=== PATIENT | male | born 2005 | race African-American/Black ===

== ENCOUNTER 2024-10-24 23:03 | Inpatient (IN) | payer OTHER ==
[~2024-10-24] VITALS: Ht 195.6 cm; Wt 142.0 kg
--- NOTE | 2024-10-24 23:43 | ED.PDOC ---
Eye-HPI HPI Comments HPI: Poor Historian. 18-year-old male presents to emergency department for two day history of sore throat and swollen tonsils and pain with swallowing. Denies any other acute symptoms. Patient was found with a fever here in the ED. Past Medical History: Denies any Past Surgical History: Denies any REVIEW OF SYSTEMS: CONSTITUTIONAL: Denies acute: fever, diaphoresis, chills, HEAD: Denies acute: headache, photophobia Eyes: Denies acute: Double vision, vision loss, eye pain, eye discharge. EARS: Denies acute: tinnitus, hearing loss, ear discharge, ear pain, THROAT: Denies acute: swelling, difficulty swallowing , change in voice. NECK: Denies acute: neck pain, neck swelling, stiff neck. HEART: Denies acute : chest pain, palpitations, LUNGS: Denies acute: SOB, wheezing, cough, hemoptysis ABDOMEN: Denies acute: abdominal pain, Nausea, Vomiting, diarrhea, melena , hematemesis, hematochezia SKIN: Denies acute: rash, redness, lesions, itchiness. EXTREMITIES: Denies acute: calf pain, numbness, tingling, weakness, denies pain in extremity. Denies acute: Low back pain. Neuro: Denies acute: focal neurological deficit, motor or sensory focal neurological deficit, tremors, seizure like activity, confusion, dizziness, change in mental status, loss of bowel or bladder function, cauda equina like symptoms. : Denies acute: dysuria, hematuria, flank pain, increase in urinary frequency. PSYCH: Denies acute: hallucination, suicidal ideation, homicidal ideation. PHYSICAL EXAM: General: Mild acute distress, awake and alert. Head: normocephalic, atraumatic. Neck: supple, trachea is midline, no swelling. Throat: Normal phonation. Bilateral tonsillar exudates and erythema. No obst ruction, bilateral tonsils swelling, no deviation, no drooling, Eyes:, no erythema, no purulent discharge, no proptosis, no icterus. Heart: regular tachycardia, no significant murmur appreciated. Lungs: no apparent respiratory distress, Able to speak in full sentences. No wheezing, no rhonchi, no crackles. No stridors Clear to auscultation bilaterally. Abdomen: non tender to palpation, non distended, soft, no guarding, no rebound, + bowel sounds. Neuro: Awake, Alert, oriented to name, self, situation, follows commands GCS=15. Speech is normal. Skin: no petechia, no purpura, no cyanosis, non-pale, not jaundice. Lower extremities: --no - Pitting edema no deformity, no focal swelling, no calf TTP. Makes eye contact. moves all four extremities. Face: no apparent facial droop. Ambulating in the ED independently. ED COURSE: Chief Complaint: Sore Throat Time Seen by MD: 23:14 Allergies: Coded Allergies: NO KNOWN ALLERGIES (Unverified , 10/24/24) Information Source: Patient Mode of Arrival: Ambulatory Was a procedure done? Was a procedure done?: No EENT DIFF Eye: N/A Sore Throat: Epiglottitis, Hand Foot Mouth Disease, Herpangina, Herpetic Stomatitis, Mononeucleosis, [place]'s Angina, Peritonsillar Abscess, Peritonsillar Cellulitis, Pharyngitis, Diptheria, Streptococcal, Viral Pharyngitis, URI X-Ray, Labs, Meds, VS Vital Signs Date Time Temp Pulse Resp B/P (MAP) Pulse Ox O2 Delivery O2 Flow Rate FiO2 10/25/24 01:47 98.6 111 18 132/75 (94) 95 98.6 10/25/24 01:47 Room Air* 0 21 10/25/24 01:12 98.7 10/25/24 00:07 100.5 10/24/24 23:20 100.5 111 18 132/75 (94) 95 Lab Test 10/24/24 23:29 10/24/24 23:00 Range/Units White Blood Count 19.9 H 4.4-10.8 10^3/uL Red Blood Count 5.31 4.5-5.90 10^6/uL Hemoglobin 13.7 13.5-17.5 g/dL Hematocrit 42.0 41.0-53.0 % Mean Corpuscular Volume 79.2 L 80.0-100.0 fL Mean Corpuscular Hemoglobin 25.9 L 28.0-32.0 pg Mean Corpuscular Hemoglobin Concent 32.7 32.0-36.0 g/dL Red Cell Distribution Width 14.0 11.8-14.3 % Platelet Count 346 140-450 10^3/uL Mean Platelet Volume 7.7 6.9-10.8 fL Neutrophils (%) (Auto) 82.3 H 37.0-80.0 % Lymphocytes (%) (Auto) 10.8 10.0-50.0 % Monocytes (%) (Auto) 5.6 0.0-12.0 % Eosinophils (%) (Auto) 0.9 0.0-7.0 % Basophils (%) (Auto) 0.4 0.0-2.0 % Neutrophils # (Auto) 16.3 H 1.6-8.6 10 ^3/uL Lymphocytes # (Auto) 2.1 0.4-5.4 10 ^3/uL Monocytes # (Auto) 1.1 0-1.3 10 ^3/uL Eosinophils # (Auto) 0.2 0-0.8 10 ^3/uL Basophils # (Auto) 0.1 0-0.2 10 ^3/uL Nucleated Red Blood Cells 0.0 % Sodium Level 139 136-145 mmol/L Potassium Level 4.0 3.5-5.1 mmol/L Chloride Level 105 98-107 mmol/L Carbon Dioxide Level 24 20-31 mmol/L Anion Gap 10 5-15 Blood Urea Nitrogen 16 9-23 mg/dL Creatinine 1.09 0.700-1.30 mg/dL Glomerular Filtration Rate Calc 100 >90 mL/min BUN/Creatinine Ratio 14.7 10.0-20.0 Serum Glucose 111 H 74-106 mg/dL Lactic Acid Level 1.2 0.4-2.0 mmol/L Calcium Level 10.2 8.7-10.4 mg/dL Total Bilirubin 0.6 0.2-1.0 mg/dL Aspartate Amino Transferase (AST) 16 13-40 U/L Alanine Aminotransferase (ALT) 19 7-40 U/L Alkaline Phosphatase 113 46-116 U/L Total Protein 7.3 5.7-8.2 g/dL Albumin 4.9 H 3.2-4.8 g/dL Monoscreen Negative Group A Streptococcus Rapid Positive Current Medications Medications (Trade) Dose Ordered Sig/Nell Route Start Time Stop Time Status Last Admin Sodium Chloride 1,000 ml @ 1,000 mls/hr Q1H ONCE IV 10/24/24 23:30 10/25/24 00:29 DC 10/25/24 00:00 Acetaminophen (Tylenol Solution Oral) 1,000 mg ONCE ONCE PO 10/24/24 23:45 10/24/24 23:46 DC 10/25/24 00:07 Ceftriaxone Sodium 50 ml @ 100 mls/hr ONCE ONCE IV 10/25/24 00:45 10/25/24 01:14 DC 10/25/24 01:37 Dexamethasone Sodium Phosphate (Decadron Injection) 20 mg ONCE ONCE IV 10/25/24 00:45 10/25/24 00:48 DC 10/25/24 01:37 Sodium Chloride 1,000 ml @ 1,000 mls/hr Q1H ONCE IV 10/25/24 02:00 10/25/24 02:59 DC 10/25/24 02:04 [place] [id number] Ph: [phone] DIAGNOSTIC IMAGING Diagnostic Imaging Report : [id number] Signed PATIENT: CLAUS MAYENNACCT: [id number] UNIT: [id number] : 2005 LOC: ER ROOM / BED: / AGE / SEX: 18 / M ADM STATUS: REG ER SERVICE 23 ORDERING PHYSICIAN: HERMANN RÍOS DO PROCEDURE(s): NK2CT - NECK WITH CONTRAST SOFT REASON: sore throat, swollen tonsils ORDER NUMBER(s): [id number], ACCESSION NUMBER(s): [id number] EXAM: CT NECK WITH CONTRAST SOFT INDICATION: sore throat, swollen tonsils Exam Date: 10/25/2024 12:16 AM COMPARISON: None TECHNIQUE: CT of the neck with intravenous contrast. RADIATION DOSE: CTDIvol: mGy, DLP: mGy*cm CONTRAST: Type of contrast: Contrast injected: ml Contrast ingested: ml FINDINGS: The palatine tonsils are enlarged with striated enhancement consistent with acute tonsillitis. There is considerable narrowing of the oropharyngeal airway. No evidence of abscess. There are mildly enlarged lymph nodes in bilateral level 2, presumably reactive. No evidence of cervical mass lesion or fluid collection. Fat planes of the neck appear intact. Parotid, submandibular and thyroid glands are unremarkable. Vascular structures of the neck appear patent. Visualized lung apices are clear. Limited visualized portions of the brain are unremarkable. Osseous structures are unremarkable. IMPRESSION: Enlarged palatine tonsils consistent with acute tonsillitis with considerable narrowing of the oropharyngeal airway. No evidence of abscess. Mild lymphadenopathy, presumably reactive ATED BY: ARMAND JOYNER MD DICTATED DATE/TIME: 10/25/2447 SIGNED BY: ARMAND JOYNER MD SIGNED DATE/TIME: 10/25/2447 CC: Time of 1ST Reevaluation: 02:31 Reevaluation 1ST: Improved Patient Education/Counseling: Diagnosis, Treatment Family Education/Counseling: No Family Present Comments Patient presented with the above HPI.---sore throat---workup was initiated. patient was found with the above mentioned diagnosis. the following medications were ordered: please refer to order lists of meds and tests obtained by myself Dr. Ríos. Patient ED course and VS have been stabilized. Patient has been reassessed in the ED and remained in a stable condition. Pertinent incidental findings were discussed with the patient and/or family. Patient/family voices understanding and is agreeable with plan. Patient has been observed in the ED adequate length of time to insure improvement/stability. Escalation of care considered: Consideration of escalation to observation or admission Patient was ADMITTED to the medicine team for further evaluation and treatment of their presentation. Sepsis protocol was initiated. All the reports of any imaging studies that were ordered by myself were reviewed by myself. Departure 1 Departure Time of Disposition: 00:52 Impression: Primary Impression: Acute tonsillitis Additional Impressions: Pharyngitis Strep throat Leukocytosis Fever Disposition: ADMITTED INPATIENT Admit to: Tele Condition: Guarded Discharged With: Self Critical Care Note Critical Care Time?: Yes (35 min-critical care time only) I personally scribed for HERMANN RÍOS DO ([email or web address]) on 10/25/24 at 02:04. Electronically submitted by Ulises Gonzales ([email or web address]). I personally scribed for HERMANN RÍOS DO ([email or web address]) on 10/25/24 at 02:48. Electronically submitted by Ulises Gonzales ([email or web address]). HERMANN RÍOS DO Oct 24, 2024 23:43
[2024-10-24 23:56] LABS: Eosinophils # (auto) 0.2 10 ^3/uL (0-0.8); Mean Corpuscular Volume 79.2 fL (80.0-100.0)
[2024-10-24 23:58] LABS: Basophils # (auto) 0.1 10 ^3/uL (0-0.2); Basophils % (auto) 0.4 % (0.0-2.0); Eosinophils % (auto) 0.9 % (0.0-7.0); Hemoglobin 13.7 g/dL (13.5-17.5); Lymphocytes # (auto) 2.1 10 ^3/uL (0.4-5.4); Lymphocytes % (auto) 10.8 % (10.0-50.0); Mean Corpuscular Hemoglobin 25.9 pg (28.0-32.0); Mean Corpuscular Hgb Conc. 32.7 g/dL (32.0-36.0); Monocytes # (auto) 1.1 10 ^3/uL (0-1.3); Monocytes % (auto) 5.6 % (0.0-12.0); Neutrophils # (auto) 16.3 10 ^3/uL (1.6-8.6); Neutrophils % (auto) 82.3 % (37.0-80.0); Platelet Count (auto) 346 10^3/uL (140-450); Red Blood Cells 5.31 10^6/uL (4.5-5.90); White Blood Cell 19.9 10^3/uL (4.4-10.8)
[2024-10-25] VITALS (8 sets, daily range): BP systolic 122–133; BP diastolic 64–78; PULSE 72–94; RESP 16–20; TEMP 97.2–98.1; O2SAT 96–99
[2024-10-25] MEDS: ACETAMINOPHEN 650 mg PER 20.3 mL UD PO ONE (00:07)
[2024-10-25 00:08] LABS: Rapid Strep A Screen-Throat Positive
[2024-10-25] MEDS: IOHEXOL 300 MG/ML 100ML BOTTLE IJ ONE (00:17)
[2024-10-25 00:32] LABS: Alanine Aminotransferase 19 U/L (7-40); Alkaline Phosphatase 113 U/L (46-116); Anion Gap 10 (5-15); Aspartate Aminotransferase 16 U/L (13-40); BUN/Creatinine Ratio 14.7 (10.0-20.0); Bilirubin, Total 0.6 mg/dL (0.2-1.0); Blood Urea Nitrogen 16 mg/dL (9-23); Calcium 10.2 mg/dL (8.7-10.4); Carbon Dioxide 24 mmol/L (20-31); Chloride 105 mmol/L (98-107); Sodium 139 mmol/L (136-145); Total Protein 7.3 g/dL (5.7-8.2)
[2024-10-25 00:36] LABS: Albumin 4.9 g/dL (3.2-4.8); Glucose 111 mg/dL (74-106)
--- NOTE | 2024-10-25 00:50 | DVH ---
EXAM: CT NECK WITH CONTRAST SOFT INDICATION: sore throat, swollen tonsils Exam Date: 10/25/2024 12:16 AM COMPARISON: None TECHNIQUE: CT of the neck with intravenous contrast. RADIATION DOSE: CTDIvol: mGy, DLP: mGy*cm CONTRAST: Type of contrast: Contrast injected: ml Contrast ingested: ml FINDINGS: The palatine tonsils are enlarged with striated enhancement consistent with acute tonsillitis. There is considerable narrowing of the oropharyngeal airway. No evidence of abscess. There are mildly enlarged lymph nodes in bilateral level 2, presumably reactive. No evidence of cervi ligia mass lesion or fluid collection. Fat planes of the neck appear intact. Parotid, submandibular and thyroid glands are unremarkable. Vascular structures of the neck appear patent. Visualized lung apices are clear. Limited visualized portions of the brain are unremarkable. Osseous structures are unremarkable. IMPRESSION: Enlarged palatine tonsils consistent with acute tonsillitis with considerable narrowing of the oropha ryngeal airway. No evidence of abscess. Mild lymphadenopathy, presumably reactive
[2024-10-25] MEDS: cefTRIAXone 1GM/50ML D5W 50 ML IV ONE (01:37)
[2024-10-25] MEDS: DexAMETHasone SOD PHOS 10MG/1ML VIAL INJ IV ONE (01:37)
[2024-10-25] MEDS: SODIUM CHLORIDE 0.9% 1,000 ML IV ONE ×2 (02:04)
[2024-10-25] MEDS ORDERED: MORPHINE SULFATE INJ 2 MG/ml SYRG IV PRN (04:30)
[2024-10-25] MEDS ORDERED: ACETAMINOPHEN 325 MG TAB PO PRN (04:30)
[2024-10-25] MEDS: SODIUM CHLORIDE 0.9% 1,000 ML IV SCH (04:30)
[2024-10-25] MEDS: THROAT LOZENGES(CEPASTAT) MT ONE (04:45)
[2024-10-25] MEDS ORDERED: IBUPROFEN 400 MG TAB PO PRN (04:45)
--- NOTE | 2024-10-25 04:51 | DVHHPRES ---
History of Present Illness Resident Creating Document: JUAN GARCIA RESIDENT History of Present Illness José Babcock is a 18 years old male with no significant past medical history presented to the ED with the chief complaints of throat pain since Monday. Patient reported since Monday patient has been having throat pain which is progressing and limiting ability to swallow and talk and enlarged tonsils which brought him to visit ED. On my assessment patient denies nausea, vomiting, diarrhea, sick contacts, recent travel, and other acute associated symptoms. PMH: Denies PSH: Denies Family history: Reviewed, noncontributory Social history: Lives with family. Denies smoking, alcohol and other drug abuse Allergies: No known allergies Review of Systems Constitutional: Yes: Fever Eyes: No: Pain, Vision change, Conjunctivae inflammation, Eyelid inflammation, Other, Redness ENT: Mouth pain, Throat pain, Throat swelling, Other (Odynophagia and dysphagia) Respiratory: No: Cough, Dry, Shortness of breath, SOB with excertion, Wheezing, Hemoptysis, Pleuritic Pain, Sputum, Wheezing, Other Cardiovascular: No: Chest Pain, Palpitations, Orthopnea, Paroxysmal Noc. Dyspnea, Edema, Lt Headedness, Other Gastrointestinal: No: Nausea, Vomiting, Abdominal Pain, Diarrhea, Constipation, Melena, Hematochezia, Other Genitourinary: No Dysuria, No Frequency, No Incontinence, No Hematuria, No Retention, No Other Musculoskeletal: No: other, neck pain, shoulder pain, arm pain, back pain, hand pain, leg pain, foot pain Skin: No: Rash, Lesions, Jaundice, Bruising, Other Neurological: No: Weakness, Numbness, Incoordination, Change in speech, Confusion, Seizures, Other Allergies: Coded Allergies: NO KNOWN ALLERGIES (Unverified , 10/24/24) Medications Current Medications Medications Dose Ordered Sig/Nell Route Start Time Stop Time Status Last Admin Dose Admin Sodium Chloride 10 ml Q8HR IV 10/25/24 06:00 Sodium Chloride 1,000 ml @ 120 mls/hr Q8H20M IV 10/25/24 04:30 Acetaminophen 650 mg Q6HP PRN PO 10/25/24 04:30 Morphine Sulfate 2 mg Q4HPRN PRN IV 10/25/24 04:30 Exam Vital Signs Vital Signs Date Time Temp Pulse Resp B/P (MAP) Pulse Ox O2 Delivery O2 Flow Rate FiO2 10/25/24 01:47 98.6 111 18 132/75 (94) 95 98.6 10/25/24 01:47 Room Air* 0 21 Exam General Appearance: Alert, Oriented X3, Cooperative, Not in acute distress HEENT: Pharynx and Tonsils are red, swollen, tender Respiratory: Clear to auscultation, Normal air movement, No added sounds Cardiovascular: Regular rate, Normal S1, Normal S2, No murmurs Abdominal: Active bowel sounds, Soft, no distention, no tenderness Extremities: No edema, Normal pulses, No tenderness/swelling Skin: No Significant rash Neuro: Normal speech, sensorimotor deficits none Psych/Mental Status: Mental status NL, Mood NL Nurse was there as sharperone during examination Labs/Xrays Labs Test 10/24/24 23:29 10/24/24 23:00 Range/Units White Blood Count 19.9 H 4.4-10.8 10^3/uL Red Blood Count 5.31 4.5-5.90 10^6/uL Hemoglobin 13.7 13.5-17.5 g/dL Hematocrit 42.0 41.0-53.0 % Mean Corpuscular Volume 79.2 L 80.0-100.0 fL Mean Corpuscular Hemoglobin 25.9 L 28.0-32.0 pg Mean Corpuscular Hemoglobin Concent 32.7 32.0-36.0 g/dL Red Cell Distribution Width 14.0 11.8-14.3 % Platelet Count 346 140-450 10^3/uL Mean Platelet Volume 7.7 6.9-10.8 fL Neutrophils (%) (Auto) 82.3 H 37.0-80.0 % Lymphocytes (%) (Auto) 10.8 10.0-50.0 % Monocytes (%) (Auto) 5.6 0.0-12.0 % Eosinophils (%) (Auto) 0.9 0.0-7.0 % Basophils (%) (Auto) 0.4 0.0-2.0 % Neutrophils # (Auto) 16.3 H 1.6-8.6 10 ^3/uL Lymphocytes # (Auto) 2.1 0.4-5.4 10 ^3/uL Monocytes # (Auto) 1.1 0-1.3 10 ^3/uL Eosinophils # (Auto) 0.2 0-0.8 10 ^3/uL Basophils # (Auto) 0.1 0-0.2 10 ^3/uL Nucleated Red Blood Cells 0.0 % Sodium Level 139 136-145 mmol/L Potassium Level 4.0 3.5-5.1 mmol/L Chloride Level 105 98-107 mmol/L Carbon Dioxide Level 24 20-31 mmol/L Anion Gap 10 5-15 Blood Urea Nitrogen 16 9-23 mg/dL Creatinine 1.09 0.700-1.30 mg/dL Glomerular Filtration Rate Calc 100 >90 mL/min BUN/Creatinine Ratio 14.7 10.0-20.0 Serum Glucose 111 H 74-106 mg/dL Lactic Acid Level 1.2 0.4-2.0 mmol/L Calcium Level 10.2 8.7-10.4 mg/dL Total Bilirubin 0.6 0.2-1.0 mg/dL Aspartate Amino Transferase (AST) 16 13-40 U/L Alanine Aminotransferase (ALT) 19 7-40 U/L Alkaline Phosphatase 113 46-116 U/L Total Protein 7.3 5.7-8.2 g/dL Albumin 4.9 H 3.2-4.8 g/dL Monoscreen Negative Group A Streptococcus Rapid Positive Assessment/Plan Assessment/Plan # Acute streptococcal pharyngitis # acute tonsillitis # sepsis due to above -rapid group a Streptococcus positive -CT neck findings of consistent with acute tonsillitis -ordered throat cultures along with panculture -monitor lab -currently giving Ampicillin-sulbactum -given 1 dose of dexamethasone 20 mg -ibuprofen and lozenges for inflammation and pain # grade 2 obesity with a BMI 36.7 -nutritional counseling -counseling regarding lifestyle modifications including diet and exercise GI PPX not indicated DVT PPX not indicated, Patient is ambulatory Advance diet as patient tolerated Goals of care discussed with the patient for more than 29 minutes: Full code status Case discussed with Dr. Wells, patient and nurse Plan discussed with: Patient My Orders Orders - JUAN GARCIA RESIDENT Procedure Category Date Status Time Admit ADMIT 10/25/24 Transmitted 04:16 Allergies DIGNA 10/25/24 In Process 04:16 Code Status CODE 10/25/24 Transmitted 04:16 Sodium Chloride Lock PHA 10/25/24 In Process (Saline Lock Ns) 06:00 Sodium Chloride 0.9% PHA 10/25/24 In Process 04:30 Condition: Stable DIGNA 10/25/24 In Process 04:16 Acetaminophen Tablet PHA 10/25/24 In Process (Tylenol Tablet) 04:30 Clear Liq Diet DIET 10/25/24 Transmitted Breakfast Morphine Sulfate PHA 10/25/24 In Process Injection 04:30 Nose Throat Culture LACY 10/25/24 Uncollected 04:33 Urine Bacterial LACY 10/25/24 Uncollected Culture 04:33 Respiratory Culture LACY 10/25/24 Uncollected W/ Gs 04:33 Complete Blood Count LAB 10/25/24 Logged 04:33 Blood Alcohol LAB 10/25/24 Logged 04:33 Drug Screen LAB 10/25/24 Logged 04:33 Lactic Acid W/ Reflex LAB 10/25/24 Logged Order 04:33 Magnesium LAB 10/25/24 Logged 04:33 PTPTT LAB 10/25/24 Logged 04:33 Rapid Influenza A&B LAB 10/25/24 Logged 04:33 Covid19 Antigen Inna LAB 10/25/24 Logged Thyroid Stimulating LAB 10/25/24 Logged Hormone 04:33 Urinalysis LAB 10/25/24 Logged 04:33 Comprehensive LAB 10/25/24 Logged Metabolic Panel 04:33 Ceftriaxone 1gm/50ml PHA 10/25/24 Logged D5w (Rocephin) 09:00 Throat Lozenges PHA 10/25/24 Logged (Cepastat Lozenges) 04:45 Throat Lozenges PHA 10/25/24 Logged (Cepastat Lozenges) 06:00 Ibuprofen Tablet PHA 10/25/24 Logged (Motrin Tablet) 04:45 Date of Service: Oct 25, 2024 Billing Provider: HENRY WELLS MD Common Visit Codes: [id number] INP/OBS CARE (HIGH) JUAN GARCIA RESIDENT Oct 25, 2024 04:51 HENRY WELLS MD Oct 25, 2024 09:26
[2024-10-25 05:10] LABS: Basophils # (auto) 0 10 ^3/uL (0-0.2); Basophils % (auto) 0.2 % (0.0-2.0); Eosinophils # (auto) 0 10 ^3/uL (0-0.8); Eosinophils % (auto) 0.2 % (0.0-7.0); Neutrophils # (auto) 16.7 10 ^3/uL (1.6-8.6)
[2024-10-25 05:12] LABS: Hematocrit 42.8 % (41.0-53.0); Hemoglobin 13.9 g/dL (13.5-17.5); Lymphocytes % (auto) 5.3 % (10.0-50.0); Mean Corpuscular Hgb Conc. 32.6 g/dL (32.0-36.0); Mean Corpuscular Volume 79.7 fL (80.0-100.0); Monocytes # (auto) 0.2 10 ^3/uL (0-1.3); Monocytes % (auto) 1.4 % (0.0-12.0); Neutrophils % (auto) 92.9 % (37.0-80.0); Platelet Count (auto) 309 10^3/uL (140-450); Red Blood Cells 5.36 10^6/uL (4.5-5.90); Red Cell Distribution Width 14.4 % (11.8-14.3)
[2024-10-25 05:23] LABS: INR 1.28 (0.9-1.15); Partial Thromboplastin Time 38.3 SEC (24.5-34.5); Prothrombin Time 13.2 sec (9.3-11.8)
[2024-10-25 05:43] LABS: Alanine Aminotransferase 19 U/L (7-40); Alkaline Phosphatase 114 U/L (46-116); Chloride 106 mmol/L (98-107)
[2024-10-25 05:44] LABS: Anion Gap 12 (5-15); Aspartate Aminotransferase 16 U/L (13-40); BUN/Creatinine Ratio 14.6 (10.0-20.0); Blood Urea Nitrogen 14 mg/dL (9-23); Magnesium 1.9 mg/dL (1.6-2.6); Potassium 4.6 mmol/L (3.5-5.1); Sodium 137 mmol/L (136-145)
[2024-10-25 05:45] LABS: Bilirubin, Total 0.5 mg/dL (0.2-1.0); Total Protein 7.6 g/dL (5.7-8.2)
[2024-10-25 05:48] LABS: Carbon Dioxide 19 mmol/L (20-31); Glucose 132 mg/dL (74-106)
[2024-10-25] MEDS: SODIUM CHLOR 0.9% PF (SALINE LOCK) 10ML VIAL/SYR IV SCH (06:00)
[2024-10-25 06:28] LABS: Blood Alcohol < 3.0 mg/dL (<10)
[2024-10-25] MEDS ORDERED: THROAT LOZENGES(CEPASTAT) MT PRN (09:00)
[2024-10-25 12:00] LABS: Urine Bacteria None Seen /hpf (None Seen)
[2024-10-25 12:17] LABS: Urine Blood Negative /uL (Negative); Urine Clarity Clear (Clear); Urine Color Light-Yellow (Yellow); Urine Hyaline Cast FEW /lpf (0 - 2); Urine Mucus FEW (None Seen); Urine Protein, UAD TRACE (Negative); Urine Specific Gravity 1.029 (1.001-1.035); Urine Squamous Epithelial Cell FEW /hpf (<5); Urine Urobilinogen Normal (Negative); Urine WBC 3 /HPF (0-3); Urine pH 5.5 (5.0-9.0)
[2024-10-25 12:35] LABS: Amphetamine Screen, Urine Neg (NEGATIVE); Barbiturate Scree,Urine Neg (NEGATIVE); Benzodiazephine Screen, Urine Neg (NEGATIVE); Cannabinoid Screen, Urine Neg (NEGATIVE); Cocaine Screen, Urine Neg (NEGATIVE); Opiate Scree,Urine Neg (NEGATIVE); Phencyclidine Screen, Urine Neg (NEGATIVE)
[2024-10-25] MEDS: AMPICILLIN & SULBACTAM SODIUM 3 GM in SODIUM CHL 0.9% 100 ML IV SCH (13:19)
[2024-10-25 15:12] LABS: COVID19 ANTIGEN SOFIA FIA NEGATIVE (NEGATIVE); Rapid Influenza A Negative (Negative); Rapid Influenza B Negative (Negative)
--- NOTE | 2024-10-25 17:56 | DVHPNRES ---
Progress Note Date Seen: Oct 25, 2024 Resident Creating Document: TRE LU RESIDENT Medical Necessity Reason Pt with a Central, PICC or Fol: No Subjective Review of Systems José Babcock is a 18 years old male with no significant past medical history presented to the ED with the chief complaints of throat pain since Monday. Patient reported since Monday patient has been having throat pain which is progressing and limiting ability to swallow and talk and enlarged tonsils which brought him to visit ED. On my assessment patient denies nausea, vomiting, diarrhea, sick contacts, recent travel, and other acute associated symptoms. Initial lab workup revealed leukocytosis with WBC 9.9, group a streptococcal test positive, UDS negative, alcohol<3. Negative for COVID-19 and influenza and mono screen.-CT neck revealed- Enlarged palatine tonsils consistent with acute tonsillitis with considerable narrowing of the oropharyngeal airway. No evidence of abscess. Mild lymphadenopathy, presumably reactive PMH: Denies PSH: Denies Family history: Reviewed, noncontributory Social history: Lives with family. Denies smoking, alcohol and other drug abuse Allergies: No known allergies Review of other system Constitutional: Yes: Fever Eyes: No: Pain, Vision change, Conjunctivae inflammation, Eyelid inflammation, Other, Redness ENT: Mouth pain, Throat pain, Throat swelling, Other (Odynophagia and dysphagia) Respiratory: No: Cough, Dry, Shortness of breath, SOB with excertion, Wheezing, Hemoptysis, Pleuritic Pain, Sputum, Wheezing, Other Cardiovascular: No: Chest Pain, Palpitations, Orthopnea, Paroxysmal Noc. Dyspnea, Edema, Lt Headedness, Other Gastrointestinal: No: Nausea, Vomiting, Abdominal Pain, Diarrhea, Constipation, Melena, Hematochezia, Other Genitourinary: No Dysuria, No Frequency, No Incontinence, No Hematuria, No Retention, No Other Musculoskeletal: No: other, neck pain, shoulder pain, arm pain, back pain, hand pain, leg pain, foot pain Skin: No: Rash, Lesions, Jaundice, Bruising, Other Neurological: No: Weakness, Numbness, Incoordination, Change in speech, Confusion, Seizures, Other Allergies: Coded Allergies: NO KNOWN ALLERGIES (Unverified , 10/24/24) Patient was seen today for clinical evaluation. Labs and chart reviewed. Patient reported ongoing throat pain. Patient is on Unasyn serum mg q.6h. Tolerating well. CT neck- Enlarged palatine tonsils consistent with acute tonsillitis with considerable narrowing of the oropharyngeal airway. No evidence of abscess. Mild lymphadenopathy, presumably reactive Objective vital signs Vital Sign Date Time Temp Pulse Resp B/P (MAP) Pulse Ox O2 Delivery O2 Flow Rate FiO2 10/25/24 16:41 98.0 84 20 132/64 (86) 99 98.0 10/25/24 05:42 Room Air* 0 21 Total Intake and Output 10/24/24 10/24/24 10/25/24 15:00 23:00 07:00 Intake Total 2050 ml Balance 2050 ml medications Current Medications Medications Dose Ordered Sig/Nell Route Start Time Stop Time Status Last Admin Dose Admin Sodium Chloride 10 ml Q8HR IV 10/25/24 06:00 10/25/24 14:09 10 ML Acetaminophen 650 mg Q6HP PRN PO 10/25/24 04:30 Morphine Sulfate 2 mg Q4HPRN PRN IV 10/25/24 04:30 Throat Lozenges 1 monae Q3HP PRN MT 10/25/24 09:00 Ibuprofen 400 mg Q8HP PRN PO 10/25/24 04:45 Ampicillin Sodium/ Sulbactam Sodium 3 gm/Sodium Chloride 100 ml @ 100 mls/hr Q6HR IV 10/25/24 06:00 10/25/24 13:19 100 MLS/HR Examination General Appearance: Alert, Oriented X3, Cooperative, Not in acute distress HEENT: Pharynx and Tonsils are red, swollen, tender Respiratory: Clear to auscultation, Normal air movement, No added sounds Cardiovascular: Regular rate, Normal S1, Normal S2, No murmurs Abdominal: Active bowel sounds, Soft, no distention, no tenderness Extremities: No edema, Normal pulses, No tenderness/swelling Skin: No Significant rash Neuro: Normal speech, sensorimotor deficits none Psych/Mental Status: Mental status NL, Mood NL Nurse was there as sharperone during examination laboratory and microbiology Laboratory Tests 10/25/24 04:45 Test 10/25/24 04:45 Range/Units Serum Glucose 132 H 74-106 mg/dL Problem List/Assessment/Plan Problem List/Assessment/Plan # Acute streptococcal pharyngitis # acute tonsillitis # sepsis due to above -rapid group a Streptococcus positive -CT neck findings of consistent with acute tonsillitis -ordered throat cultures along with panculture -monitor lab -currently giving Ampicillin-sulbactum -given 1 dose of dexamethasone 20 mg -ibuprofen and lozenges for inflammation and pain # grade 2 obesity with a BMI 36.7 -nutritional counseling -counseling regarding lifestyle modifications including diet and exercise Goals of care/advance care planning; FULL CODE; discussed with the patient >15 minutes PUD prophylaxis: DVT prophylaxis: Plan discussed with Dr. Aldridge , nursing staff, patient Total time spent on patient evaluation, chart review, assessment and plan, discussion discussion >35 minutes Plan discussed with: Patient Plan discussed with: Patient, Other (RN) My Orders My Orders Orders - TRE LU Procedure Category Date Status Time * Dietary Consult CONS 10/25/24 Transmitted 11:31 Regular Diet DIET 10/25/24 Transmitted Dinner TRE LU Oct 25, 2024 17:56
[2024-10-25] MEDS: guaiFENesin-DM 100/10mg/5ml SYR PO ONE (23:57)
[2024-10-25] MEDS: PANTOPRAZOLE 40 MG TAB PO ONE (23:57)
[2024-10-26 01:00] VITALS: BP 115/57; PULSE 87; RESP 18; TEMP 97.9; O2SAT 96
[2024-10-26 05:00] VITALS: BP 126/62; PULSE 80; RESP 18; TEMP 97.7; O2SAT 97
[2024-10-26] MEDS: PANTOPRAZOLE 40 MG TAB PO SCH (05:57)
[2024-10-26 07:13] LABS: Basophils # (auto) 0 10 ^3/uL (0-0.2); Basophils % (auto) 0.1 % (0.0-2.0); Eosinophils # (auto) 0 10 ^3/uL (0-0.8); Hematocrit 40.2 % (41.0-53.0); Hemoglobin 12.7 g/dL (13.5-17.5); Lymphocytes % (auto) 5.2 % (10.0-50.0); Mean Corpuscular Hemoglobin 25.2 pg (28.0-32.0); Mean Corpuscular Hgb Conc. 31.7 g/dL (32.0-36.0); Mean Corpuscular Volume 79.4 fL (80.0-100.0); Monocytes # (auto) 0.9 10 ^3/uL (0-1.3); Monocytes % (auto) 4.8 % (0.0-12.0); Neutrophils # (auto) 17.4 10 ^3/uL (1.6-8.6); Neutrophils % (auto) 89.9 % (37.0-80.0); Platelet Count (auto) 302 10^3/uL (140-450); Red Blood Cells 5.06 10^6/uL (4.5-5.90); Red Cell Distribution Width 14.2 % (11.8-14.3); White Blood Cell 19.3 10^3/uL (4.4-10.8)
[2024-10-26 07:39] LABS: Anion Gap 13 (5-15); Carbon Dioxide 22 mmol/L (20-31); Chloride 106 mmol/L (98-107); Potassium 3.8 mmol/L (3.5-5.1); Sodium 141 mmol/L (136-145)
[2024-10-26 07:40] LABS: Calcium 9.2 mg/dL (8.7-10.4)
[2024-10-26 07:45] LABS: BUN/Creatinine Ratio 13.7 (10.0-20.0); Blood Urea Nitrogen 13 mg/dL (9-23)
[2024-10-26 07:46] LABS: Glucose 154 mg/dL (74-106)
[2024-10-26 08:00] VITALS: PULSE 74; RESP 21; O2SAT 96
[2024-10-26] MEDS ORDERED: cefTRIAXone 1GM/50ML D5W 50 ML IV SCH (09:00)
[2024-10-26 09:08] VITALS: BP 139/67; PULSE 74; RESP 21; TEMP 98.1; O2SAT 96
[2024-10-26 12:46] VITALS: BP 130/68; PULSE 80; RESP 19; TEMP 98.3; O2SAT 96
--- NOTE | 2024-10-26 13:14 | DVHDSRES ---
Discharge Summary Date of Admission Resident Creating Document: TRE LU RESIDENT Oct 25, 2024 at 04:16 Date of Discharge: Oct 26, 2024 Admitting Diagnosis Sepsis likely due to severe oropharyngeal pharyngitis/acute tonsillitis, difficulty swallowing or eating Labs/Diagnostic Data: Laboratory Results Test 10/26/24 06:15 10/25/24 13:43 10/25/24 11:30 10/25/24 04:45 White Blood Count 19.3 10^3/uL (4.4-10.8) Red Blood Count 5.06 10^6/uL (4.5-5.90) Hemoglobin 12.7 g/dL (13.5-17.5) Hematocrit 40.2 % (41.0-53.0) Mean Corpuscular Volume 79.4 fL (80.0-100.0) Mean Corpuscular Hemoglobin 25.2 pg (28.0-32.0) Mean Corpuscular Hemoglobin Concent 31.7 g/dL (32.0-36.0) Red Cell Distribution Width 14.2 % (11.8-14.3) Platelet Count 302 10^3/uL (140-450) Mean Platelet Volume 7.9 fL (6.9-10.8) Neutrophils (%) (Auto) 89.9 % (37.0-80.0) Lymphocytes (%) (Auto) 5.2 % (10.0-50.0) Monocytes (%) (Auto) 4.8 % (0.0-12.0) Eosinophils (%) (Auto) 0.0 % (0.0-7.0) Basophils (%) (Auto) 0.1 % (0.0-2.0) Neutrophils # (Auto) 17.4 10 ^3/uL (1.6-8.6) Lymphocytes # (Auto) 1.0 10 ^3/uL (0.4-5.4) Monocytes # (Auto) 0.9 10 ^3/uL (0-1.3) Eosinophils # (Auto) 0 10 ^3/uL (0-0.8) Basophils # (Auto) 0 10 ^3/uL (0-0.2) Nucleated Red Blood Cells 0.0 % Sodium Level 141 mmol/L (136-145) Potassium Level 3.8 mmol/L (3.5-5.1) Chloride Level 106 mmol/L (98-107) Carbon Dioxide Level 22 mmol/L (20-31) Anion Gap 13 (5-15) Blood Urea Nitrogen 13 mg/dL (9-23) Creatinine 0.95 mg/dL (0.700-1.30) Glomerular Filtration Rate Calc 118 mL/min (>90) BUN/Creatinine Ratio 13.7 (10.0-20.0) Serum Glucose 154 mg/dL (74-106) Hemoglobin A1c 5.5 % A1C (<5.7) Calcium Level 9.2 mg/dL (8.7-10.4) Influenza Type A Antigen Negative (Negative) Influenza Type B Antigen Negative (Negative) SARS-CoV-2 Antigen (Rapid) Negative (NEGATIVE) Urine Color Light-yellow (Yellow) Urine Clarity Clear (Clear) Urine pH 5.5 (5.0-9.0) Urine Specific [place] 1.029 (1.001-1.035) Urine Protein Trace (Negative) Urine Ketones Negative (Negative) Urine Blood Negative /uL (Negative) Urine Nitrite Negative (Negative) Urine Bilirubin Negative (Negative) Urine Urobilinogen Normal mg/dL (Negative) Urine Leukocyte Esterase Negative /uL (Negative) Urine RBC 2 /hpf (0 - 3) Urine Microscopic WBC 3 /HPF (0-3) Urine Squamous Epithelial Cells Few /hpf (<5) Urine Bacteria None seen /hpf (None Seen) Urine Hyaline Casts Few /lpf (0 - 2) Urine Mucus Few (None Seen) Urine Glucose 1+ mg/dL (Normal) Urine Opiates Screen Neg (NEGATIVE) Urine Fentanyl Screen Neg (NEGATIVE) Urine Barbiturates Screen Neg (NEGATIVE) Urine Phencyclidine Screen Neg (NEGATIVE) Urine Amphetamines Screen Neg (NEGATIVE) Urine Benzodiazepines Screen Neg (NEGATIVE) Urine Cocaine Screen Neg (NEGATIVE) Urine Cannabinoids Screen Neg (NEGATIVE) Prothrombin Time 13.2 sec (9.3-11.8) Prothrombin Time INR 1.28 (0.9-1.15) Activated Partial Thromboplast Time 38.3 SEC (24.5-34.5) Lactic Acid Level 0.8 mmol/L (0.4-2.0) Magnesium Level 1.9 mg/dL (1.6-2.6) Total Bilirubin 0.5 mg/dL (0.2-1.0) Aspartate Amino Transferase (AST) 16 U/L (13-40) Alanine Aminotransferase (ALT) 19 U/L (7-40) Alkaline Phosphatase 114 U/L (46-116) Total Protein 7.6 g/dL (5.7-8.2) Albumin 5.0 g/dL (3.2-4.8) Thyroid Stimulating Hormone (TSH) 1.22 uIU/mL (0.55-4.78) Plasma/Serum Blood Alcohol < 3.0 mg/dL (<10) Test 10/24/24 23:29 10/24/24 23:00 Monoscreen Negative Group A Streptococcus Rapid Positive Other Laboratory Tests 10/26/24 06:15 Brief Hx & Hospital Course: HPI-José Mayen is a 18 years old male with no significant past medical history presented to the ED with the chief complaints of throat pain since Monday. Patient reported since Monday patient has been having throat pain which is progressing and limiting ability to swallow and talk and enlarged tonsils which brought him to visit ED. On my assessment patient denies nausea, vomiting, diarrhea, sick contacts, recent travel, and other acute associated symptoms. Initial lab workup revealed leukocytosis with WBC 9.9, group a streptococcal test positive, UDS negative, alcohol<3. Negative for COVID-19 and influenza and mono screen.-CT neck revealed- Enlarged palatine tonsils consistent with acute tonsillitis with considerable narrowing of the oropharyngeal airway. No evidence of abscess. Mild lymphadenopathy, presumably reactive Hospital course-patient is 18 years old male with obesity came with a complaint of severe throat pain and unable to swallow and talk. Patient was admitted to the hospital due to sepsis due to severe pharyngitis with tonsillitis and unable to swallow talk. Initial lab workup revealed leukocytosis with WBC 9.9, group a streptococcal test positive, UDS negative, alcohol<3. Negative for COVID-19 and influenza and mono screen.-CT neck revealed- Enlarged palatine tonsils consistent with acute tonsillitis with considerable narrowing of the oropharyngeal airway. No evidence of abscess. Mild lymphadenopathy, presumably reactive. Treated with IV antibiotic and IV fluid. Symptoms improved with conservative treatment. Blood culture negative. Patient was able to eat and swallow well and talk well. Patient is being discharged home with Augmentin 875 mg by mouth b.i.d. for 7 days. Patient's meds were sent to the pharmacy electronically. Patient was advised to follow up with the primary care physician with a report of repeat CBC. Patient verbalized understanding. Patient was hemodynamically stable on discharge. Diagnosis Sepsis likely due to acute pharyngitis/acute tonsillitis Acute streptococcal pharyngitis/severe tonsillitis Difficulty swallowing talking due to severe oropharyngeal pharyngitis-improved Obesity Discharge plan Augmentin 875 mg p.o. b.i.d. for 7 days Please follow up with the primary care physician in 1 week with a report of repeat CBC Patient counseled about healthy diet, weight reduction, physical activity, low- fat diet. Operations or Procedures [place] [id number] Ph: [phone] DIAGNOSTIC IMAGING Diagnostic Imaging Report : [id number] Signed PATIENT: CLAUS MAYENNACCT: [id number] UNIT: [id number] : 2005 LOC: ER ROOM / BED: / AGE / SEX: 18 / M ADM STATUS: REG ER SERVICE [id number] ORDERING PHYSICIAN: HERMANN RÍOS DO PROCEDURE(s): NK2CT - NECK WITH CONTRAST SOFT REASON: sore throat, swollen tonsils ORDER NUMBER(s): [id number], ACCESSION NUMBER(s): [id number] EXAM: CT NECK WITH CONTRAST SOFT INDICATION: sore throat, swollen tonsils Exam Date: 10/25/2024 12:16 AM COMPARISON: None TECHNIQUE: CT of the neck with intravenous contrast. RADIATION DOSE: CTDIvol: mGy, DLP: mGy*cm CONTRAST: Type of contrast: Contrast injected: ml Contrast ingested: ml FINDINGS: The palatine tonsils are enlarged with striated enhancement consistent with acute tonsillitis. There is considerable narrowing of the oropharyngeal airway. No evidence of abscess. There are mildly enlarged lymph nodes in bilateral level 2, presumably reactive. No evidence of cervical mass lesion or fluid collection. Fat planes of the neck appear intact. Parotid, submandibular and thyroid glands are unremarkable. Vascular structures of the neck appear patent. Visualized lung apices are clear. Limited visualized portions of the brain are unremarkable. Osseous structures are unremarkable. IMPRESSION: Enlarged palatine tonsils consistent with acute tonsillitis with considerable narrowing of the oropharyngeal airway. No evidence of abscess. Mild lymphadenopathy, presumably reactive ATED BY: ARMAND JOYNER MD DICTATED DATE/TIME: 10/25/2447 SIGNED BY: ARMAND JOYNER MD SIGNED DATE/TIME: 10/25/2447 CC: Condition at Discharge: Stable Final Diagnosis/Problems List Sepsis likely due to acute pharyngitis/acute tonsillitis Acute streptococcal pharyngitis/severe tonsillitis Group a Streptococcus pharyngitis Difficulty swallowing talking due to severe oropharyngeal pharyngitis-improved Obesity Discharge Disposition: Home Discharge Instruct/Medications Diet: Regular Activity: No Restrictions, As Tolerated Follow Up/Referral: Augmentin 875 mg p.o. b.i.d. for 7 days Please follow up with the primary care physician in 1 week with a report of repeat CBC Patient counseled about healthy diet, weight reduction, physical activity, low-fat diet. Medications: Augmentin 875 mg by mouth 2 times a day for 7 days Discharge Statement: "Patient was advised to return to the ER or call 911 if any headaches, dizziness, shortness of breath, chest pain, abdominal pain, bleeding, fevers, or worsening of medical condition. Patient was counseled about treatment plan, medications, possible side effects, patientverbalized understanding. All questions were answered to the best of my ability. This discharge took greater then 30 minutes in planning, reviewing documentation, counseling the patient, and discussing with other team members." ASSESSMENT ASSESSMENT Assessment Sepsis likely due to severe group a Streptococcus tonsillitis/severe pharyngitis Acute tonsillitis with lymphadenopathy Positive for group a Streptococcus Obesity TRE LU RESIDENT Oct 26, 2024 13:14
== END 2024-10-26 14:07 | disposition home or self-care (01) | DRG 720 ==
LOC: EEVIPCON 23:03 → ER 23:03 → OVERFLOW 10-25 04:16 → WEST WING 10-25 14:08
PROVIDERS: ADMIT Student in an Organized Health Care Education/Training Program; ATTEND Student in an Organized Health Care Education/Training Program
DX: A40.0 Sepsis due to streptococcus, group A (principal); E66.9 Obesity, unspecified; Z20.822 Contact with and (suspected) exposure to COVID-19; J03.90 Acute tonsillitis, unspecified; Z79.899 Other long term (current) drug therapy; Z68.36 Body mass index [BMI] 36.0-36.9, adult
CPT/HCPCS: 36415; 70491; 80048; 80053; 80307; 80320; 81001; 83036; 83605; 83735; 84443; 85025; 85610; 85730; 86308; 87040; 87070; 87086; 87205; 87426; 87804; 87880; 96361; 96365; 96375; 99291; G0378; J1100